=== PATIENT | male | born 1935 | race Caucasian/White ===

== ENCOUNTER → 2017-03-19 | Outpatient (CLI) | payer MEDICARE, OTHER ==
--- NOTE | 2017-03-19 18:38 | Diagnostic Imaging Report ---
PROCEDURE:ABDOMEN-1VIEW (KUB) COMPARISON:Patients [facility], DX, ABDOMEN-1VIEW (KUB), 09/19/2016, 15:03. INDICATIONS:CALCULUS OF KIDNEY FINDINGS: Nonobstructive bowel gas pattern, with moderate amount of retained stool, which partially obscures the renal shadows. No radiopaque densities project over the renal shadows, expected course of the ureters or bladder. Stable pelvic phleboliths and vascular calcifications. Degenerative changes in the lumbosacral spine. CONCLUSION:No radiopaque densities project over the genitourinary system. Candido Singh M.D. Dictated by: Candido Singh M.D. on 03/19/2017 at 18:46 Electronically approved by: Candido Singh M.D. on 03/19/2017 at 18:46
== END ==
LOC: RAD 16:43
PROVIDERS: ATTEND Urology
DX: N20.0 Calculus of kidney (principal)
CPT/HCPCS: 74000